=== PATIENT | female | born 1970 | race American Indian/Alaskan Native ===

== ENCOUNTER 2018-05-04 22:29 | Emergency (ER) | payer OTHER ==
[2018-05-04 23:28] VITALS: BMI 30.9
[2018-05-04 23:30] VITALS: RESP 18; TEMP 98.4
--- NOTE | 2018-05-05 00:57 | ED PDOC ---
Arrival/HPI - General Chief Complaint: Abnormal Skin Integrity Time Seen by Provider: 05/05/18 00:46 Historian: Patient - History of Present Illness Narrative History of Present Illness (Text): 05/05/18 00:57 A 48 year old female, whose past medical history includes eczema, presents to the emergency department complaining of itchy eyes and eczema flare ups for the past 3 weeks. Patient reports excessive itching on the areas surrounding her eyes. Patient was treated in a pervious visit to the ER with a shot of steroids that significantly relieved symptoms. Patient reports she has not tried any new foods, soaps, or medication. Patient denies any fever, chills, shortness of breath, chest pain, diarrhea, nausea, vomiting, urinary symptoms, back pain, neck pain, headache, dizziness, or any other complaints. PMD: Dr. Garber Time/Duration: > week (3 ) Symptom Onset: Gradual Symptom Course: Unchanged Activities at Onset: Light Context: Home Past Medical History - Provider Review Nursing Documentation Reviewed: Yes - Infectious Disease Hx of Infectious Diseases: None - Tetanus Immunization Tetanus Immunization: Unknown - Past Medical History Past Medical History: No Previous - Psychiatric Hx Depression: No Hx Emotional Abuse: No Hx Physical Abuse: No Hx Substance Use: No - Past Surgical History Past Surgical History: No Previous - Surgical History Hx Tonsillectomy: Yes Other/Comment: Ectopic preg - Anesthesia Hx Anesthesia: Yes Hx Anesthesia Reactions: No Hx Malignant Hyperthermia: No - Suicidal Assessment Feels Threatened In Home Enviroment: No Family/Social History - Physician Review Nursing Documentation Reviewed: Yes Family/Social History: Unknown Family HX Smoking Status: Never Smoked Hx Alcohol Use: Yes Hx Substance Use: No Hx Substance Use Treatment: No Allergies/Home Meds Allergies/Adverse Reactions: Allergies No Known Allergies Allergy (Verified 10/22/12 22:14) Review of Systems - Physician Review All systems were reviewed & negative as marked: Yes - Review of Systems Constitutional: absent: Fevers, Night Sweats Eyes: Other (+bilateral eye itching with eczema) Respiratory: absent: SOB Cardiovascular: absent: Chest Pain Gastrointestinal: absent: Diarrhea, Nausea, Vomiting Genitourinary Female: absent: Urine Output Changes Musculoskeletal: absent: Back Pain, Neck Pain Neurological: absent: Headache, Dizziness Physical Exam Vital Signs Reviewed: Yes Vital Signs Temp Pulse Resp BP Pulse Ox 05/04/18 23:27 98.4 F 96 H 18 124/69 99 Temperature: Afebrile Blood Pressure: Normal Pulse: Tachycardic Respiratory Rate: Normal Appearance: Positive for: Well-Appearing, Non-Toxic, Comfortable Pain Distress: None Mental Status: Positive for: Alert and Oriented X 3 - Systems Exam Head: Present: Atraumatic, Normocephalic Pupils: Present: PERRL Extroacular Muscles: Present: Other (+mild periorbital bilateral edema and erythema) Conjunctiva: Present: Normal Mouth: Present: Other (+uvula and tongue midline, no swelling). No: Normal Tounge Neck: Present: Normal Range of Motion Respiratory/Chest: Present: Clear to Auscultation, Good Air Exchange. No: Respiratory Distress, Accessory Muscle Use Cardiovascular: Present: Regular Rate and Rhythm, Normal S1, S2. No: Murmurs Abdomen: No: Tenderness, Distention, Peritoneal Signs Back: Present: Normal Inspection Upper Extremity: Present: Normal Inspection. No: Cyanosis, Edema Lower Extremity: Present: Normal Inspection. No: Edema Neurological: Present: GCS=15, CN II-XII Intact, Speech Normal Skin: Present: Warm, Dry, Rashes (+macular rash on cheeks bilaterally, no cellulitis), Erythematous (+erythema on chest) Psychiatric: Present: Alert, Oriented x 3, Normal Insight, Normal Concentration Medical Decision Making ED Course and Treatment: 05/05/18 00:57 Impression: 48 year old female presenting to the emergency department complaining of itchy eyes and eczema flare ups. Plan: -- solumedrol -- Reassess and disposition Prior Visits: Notes and results from previous visits were reviewed. Progress Notes: 05/05/18 01:10 Patient was prescribed medicine to relieve itching and prepared for discharge. Pt stable for d/c. Patient sates she has a pcp and a laster hand w/whom she can follow up. - Scribe Statement The provider has reviewed the documentation as recorded by the Celestino Loepz All medical record entries made by the Scribe were at my direction and personally dictated by me. I have reviewed the chart and agree that the record accurately reflects my personal performance of the history, physical exam, medical decision making, and the department course for this patient. I have also personally directed, reviewed, and agree with the discharge instructions and disposition. Disposition/Present on Arrival - Present on Arrival Any Indicators Present on Arrival: No History of DVT/PE: No History of Uncontrolled Diabetes: No Urinary Catheter: No History of Decub. Ulcer: No History Surgical Site Infection Following: None - Disposition Have Diagnosis and Disposition been Completed?: Yes Diagnosis: Acute eczema Disposition: HOME/ ROUTINE Disposition Time: 01:15 Patient Plan: Discharge Condition: STABLE Discharge Instructions (ExitCare): Eczema (Atopic Dermatitis) (DC) Additional Instructions: SAAD BAGLEY, thank you for letting us take care of you today. Your provider was Francine Dean MD and you were treated for ALLERGIC REACTION. The emergency medical care you received today was directed at your acute symptoms. If you were prescribed any medication, please fill it and take as directed. It may take several days for your symptoms to resolve. Return to the Emergency Department if your symptoms worsen, do not improve, or if you have any other problems. Please contact your doctor in 1-2 days for follow up appointment. Bring any paperwork you were given at discharge with you along with any medications you are taking to your follow up visit. Our treatment cannot replace ongoing medical care by a primary care provider outside of the emergency department. Thank you for allowing the [facility] team to be part of your care today. Prescriptions: Cetirizine HCl [Zyrtec] 10 mg PO DAILY #30 capsule predniSONE [Prednisone] 40 mg PO DAILY #10 tab Referrals: Shaik Garber MD [Primary Care Provider] - Follow up with primary Forms: [facility] [employer] ([place]ali)
[2018-05-05 03:09] VITALS: BP 121/82; PULSE 92; O2SAT 100
== END 2018-05-05 01:30 | disposition home or self-care (01) ==
LOC: ED 22:29
DX: L30.9 Dermatitis, unspecified (principal)
CPT/HCPCS: 96372; 99282; J2930